=== PATIENT | female | born 1995 | race Two or more races ===

== ENCOUNTER 2018-04-05 13:52 | Emergency (ER) | payer OTHER ==
[~2018-04-05] VITALS: Ht 162.6 cm; Wt 52.2 kg
[2018-04-05] MEDS ORDERED: CLONAZEPAM0.5 MG PO (14:16)
== END 2018-04-05 18:20 | disposition home or self-care (01) ==
LOC: ER 13:52
DX: J35.01 Chronic tonsillitis (principal)